=== PATIENT | female | born 1975 | race Caucasian/White ===

== ENCOUNTER → 2020-01-24 | Outpatient (CLI) | payer BC ==
--- NOTE | 2020-01-24 16:16 | KCIC ---
MR of the right knee HISTORY: Right knee pain after an injury 3 weeks ago. [place] a pop. Persistent medial pain. TECHNIQUE: Routine multiplanar sequences are obtained. FINDINGS: No evidence of a medial meniscal tear. No evidence of a lateral meniscal tear. Anterior and posterior cruciate ligaments are intact. Medial collateral ligament demonstrates a high-grade partial proximal tear. Iliotibial band unremarkable. Fibular collateral ligament, biceps femoris tendon and popliteus tendon are intact. The patellar tendon and quadriceps tendon are intact. Sprain or tearing of the medial retinaculum and medial patellofemoral ligament at their femoral aspect. Small joint effusion. Mild to moderate chondral thinning at the medial joint compartment. Lateral compartment is intact. Severe chondral thinning of the lateral patellar facet. Moderate to severe chondral thinning at the lateral femoral trochlea. No acute fracture. No aggressive bone destruction. No significant Mccann's cyst. IMPRESSION: 1. High-grade tear of the proximal medial collateral ligament. There is also sprain or tearing of the femoral aspect of the medial retinaculum and medial patellofemoral ligament. 2. 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 Electronically signed by: Marcos Pearson MD (01/24/2020 4:13 PM) [id number]
== END ==
LOC: KCIC MRI 14:58
PROVIDERS: ATTEND Physician Assistant Medical
DX: S83.411A Sprain of medial collateral ligament of right knee, initial encounter (principal); M17.11 Unilateral primary osteoarthritis, right knee; M94.28 Chondromalacia, other site; X58.XXXA Exposure to other specified factors, initial encounter; Y93.89 Activity, other specified; Y92.89 Other specified places as the place of occurrence of the external cause; Y99.8 Other external cause status
CPT/HCPCS: 73721